=== PATIENT | female | born 1965 | race Hispanic/Latino ===

== ENCOUNTER 2017-04-27 21:57 | Emergency (ER) | payer MEDICARE, OTHER ==
[~2017-04-27] VITALS: Ht 157.5 cm; Wt 69.9 kg
[~2017-04-27 21:57] MED LIST: Z.0.LANTUS100 UNIT/1; Z.0.LISINOPRIL5 MG; [UNRECOGNIZED DRUG - OTHER]
--- OUTSIDE RECORDS SUMMARY | 2017-04-27 22:00 | XMS REPORT | Clinical Summary ---
Author Author [facility] Organization [facility] Address Unknown Phone Unavailable Care Team Providers Care Change Over Name Role Phone Carlos Galeano MD PCP Unavailable Allergies Active Allergy Reactions Severity Noted Date Comments Iodine And Iodide Anaphylaxis High 11/02/2015 Containing Products Morphine Anaphylaxis, High 11/02/2015 Photosensitivity Current Medications Prescription Sig. Disp. Refills Start End Date Status Date clotrimazole-betamethason Apply topically 2 (two) Active e (LOTRISONE) cream times a day. carvedilol (COREG) 12.5 Take 12.5 mg by mouth 2 Active MG tablet (two) times a day with meals. ALPRAZolam (XANAX) 1 MG Take 1 mg by mouth daily. Active tablet pantoprazole (PROTONIX) Take 40 mg by mouth Active 40 MG EC tablet daily. sevelamer (RENVELA) 800 Take 800 mg by mouth 3 Active mg tablet (three) times a day with meals. 4 tabs insulin ASPART (NovoLOG) Inject under the skin 3 Active 100 unit/mL injection (three) times a day before meals. insulin GLARGINE (LANTUS) Inject under the skin Active 100 unit/mL injection nightly. Active Problems Problem Noted Date Type 2 diabetes mellitus with diabetic chronic kidney disease 11/02/2015 Polycystic kidney disease 11/02/2015 Encounters Date Type Specialty Care Team Description 09/18/2016 Abstract Transplant Yisel Granger RN after 04/26/2016 Social History Tobacco Use Types Packs/Day Years Used Date Former Smoker Cigarettes 1 Quit: 2006 Smokeless Tobacco: Never Used Sex Assigned at Date Recorded Not on file Last Filed Vital Signs Not on file Plan of Treatment Health Maintenance Due Date Last Done Comments FOOT EXAM 1974 OPHTHALMOLOGY EXAM 1974 PAP SMEAR 1985 COLONOSCOPY 2014 INFLUENZA VACCINE 09/16/2016 MAMMOGRAM 07/19/2017 07/20/2015 Results Not on fileafter 04/26/2016 Insurance Payer Benefit Subscriber ID Type Phone Address Plan / Group [employer]P xxxxxxxxx Transplant [facility] 2010+ MEDICARE MEDICARE xxxxxxxxxx Medicare [place] PART A AND B [facility] xxxxxxxxx HMO/PPO THCARE CHOICE/CHO ICE +
[2017-04-27] MEDS ORDERED: TETANUS/DIPHTHERIA TOX ADULT 0.5 ML SYR IM ONE (23:00)
--- NOTE | 2017-04-27 23:33 | Diagnostic Imaging Report ---
ELBOW LEFT COMPLETE, KNEE RIGHT THREE VIEWS Comparison: None Clinical history: Fall with left elbow and right knee pain Findings: Left elbow: Clips overlie the proximal forearm. Vascular calcifications. There is no joint effusion. No acute fracture or dislocation. Right knee: Vascular calcifications. No joint effusion. No acute fracture or dislocation. Impression: No acute bony abnormality of the left elbow or right knee. Signed by: Dr Sena Neville MD on 04/27/2017 11:30 PM
== END 2017-04-28 00:35 | disposition home or self-care (01) ==
LOC: ER 21:57
DX: S80.01XA Contusion of right knee, initial encounter (principal); S80.211A Abrasion, right knee, initial encounter; M25.522 Pain in left elbow; W01.0XXA Fall on same level from slipping, tripping and stumbling without subsequent striking against object, initial encounter; Y93.01 Activity, walking, marching and hiking; Y92.512 Supermarket, store or market as the place of occurrence of the external cause; I10 Essential (primary) hypertension; E11.9 Type 2 diabetes mellitus without complications; N28.9 Disorder of kidney and ureter, unspecified
CPT/HCPCS: 90714; 99284